=== PATIENT | female | born 1975 | race Caucasian/White ===

== ENCOUNTER 2019-04-17 17:17 | Emergency (ER) | payer OTHER ==
[~2019-04-17] VITALS: Ht 172.7 cm; Wt 59.5 kg
[2019-04-17 17:22] VITALS: BP 120/59; TEMP 99.3
[2019-04-17 19:07] VITALS: PULSE 91
== END 2019-04-17 19:08 | disposition home or self-care (01) ==
LOC: COL.ER 17:17
DX: J06.9 Acute upper respiratory infection, unspecified (principal); F17.210 Nicotine dependence, cigarettes, uncomplicated; Z98.890 Other specified postprocedural states; Z88.5 Allergy status to narcotic agent

== ENCOUNTER 2020-03-24 22:24 | Emergency (ER) | payer OTHER ==
[~2020-03-24] VITALS: Ht 172.7 cm; Wt 61.4 kg
[2020-03-24 22:40] VITALS: TEMP 99.4
[2020-03-24 23:16] LABS: BASO % 0.2 % (0.0-2.0); GRAN # 4.6 (1.4-6.5); GRAN % 75.3 % (42.2-75.2); LYMPH % 16.4 % (20.0-51.0); MEAN CELL VOLUME 73 fl (80.0-100.0); MEAN CORPUSCULAR HGB CONC 32 g/dl (33.0-37.0); MEAN PLATELET VOLUME 10.1 fl (7.4-10.4); MONO # 0.5 (0.1-0.6); MONO % 7.8 % (1.7-9.3); PLATELET COUNT 270 K/mm3 (130-400); RED BLOOD COUNT 4.07 M/mm3 (4.10-5.30); REDCELL DISTRIBUTION WIDTH-CV 16.4 % (11.5-14.5)
[2020-03-24 23:19] LABS: HEMATOCRIT 29.7 % (37.0-47.0); HEMOGLOBIN 9.4 g/dl (12.5-16.0); MEAN CORPUSCULAR HEMOGLOBIN 23 pg (27.0-31.0)
[2020-03-24 23:28] LABS: ALBUMIN 4.1 gm/dL (3.5-5.0); BILIRUBIN,TOTAL 0.5 mg/dL (0.0-1.0); CALCIUM 8.3 mg/dL (8.4-10.2); CREATININE, serum 0.66 (0.52-1.25); POTASSIUM 3.6 mmol/L (3.4-5.0); TOTAL PROTEIN 7.5 gm/dL (6.4-8.2)
[2020-03-25 00:07] LABS: COLLECTION METHOD CLEAN CATCH
[2020-03-25 00:12] LABS: PH 6 (5-8); SQUAMOUS EPITHELIAL 0-2 /hpf; URINE APPEARANCE Clear; URINE BACTERIA None Seen /hpf; URINE BILIRUBIN Negative (NEGATIVE); URINE BLOOD Negative (NEGATIVE); URINE COLOR Yellow; URINE GLUCOSE Negative (NEGATIVE); URINE KETONE Negative (NEGATIVE); URINE LEUKOCYTE ESTERASE Trace (NEGATIVE); URINE NITRATE Negative (NEGATIVE); URINE PROTEIN(semi-quant) Negative (NEGATIVE); URINE RBC 0-2 /hpf; URINE UROBILINOGEN Negative (NEGATIVE)
[2020-03-25 00:53] VITALS: BP 114/70; PULSE 68
== END 2020-03-25 00:53 | disposition home or self-care (01) ==
LOC: COL.ER 22:24
PROVIDERS: Physician Assistant
DX: B34.9 Viral infection, unspecified (principal); D64.9 Anemia, unspecified; F17.210 Nicotine dependence, cigarettes, uncomplicated; Z20.828 Contact with and (suspected) exposure to other viral communicable diseases
CPT/HCPCS: J7030

== ENCOUNTER 2020-03-25 16:15 | Inpatient (IN) | payer OTHER ==
[~2020-03-25] VITALS: Ht 172.7 cm; Wt 64.0 kg
[2020-03-25 17:23] LABS: BASO % 0.4 % (0.0-2.0); EOS % 0.4 % (0-4.0); GRAN # 4.1 (1.4-6.5); LYMPH # 1.1 (1.2-3.4); LYMPH % 19.2 % (20.0-51.0); MEAN CELL VOLUME 74 fl (80.0-100.0); MEAN CORPUSCULAR HGB CONC 32 g/dl (33.0-37.0); MONO # 0.4 (0.1-0.6); MONO % 6.6 % (1.7-9.3); PLATELET COUNT 232 K/mm3 (130-400); RED BLOOD COUNT 3.78 M/mm3 (4.10-5.30); REDCELL DISTRIBUTION WIDTH-CV 16.5 % (11.5-14.5)
[2020-03-25 17:37] LABS: ALBUMIN 3.6 gm/dL (3.5-5.0); BILIRUBIN,TOTAL 0.6 mg/dL (0.0-1.0); C-REACTIVE PROTEIN 5.5 mg/dL (0.0-0.9); CALCIUM 8.1 mg/dL (8.4-10.2); CREATININE, serum 0.52 (0.52-1.25); POTASSIUM 3.3 mmol/L (3.4-5.0)
[2020-03-25 17:47] LABS: HEMOGLOBIN 8.9 g/dl (12.5-16.0); MEAN CORPUSCULAR HEMOGLOBIN 24 pg (27.0-31.0)
[2020-03-25 18:20] LABS: COLLECTION METHOD CLEAN CATCH
[2020-03-25 18:26] LABS: ERYTHROCYTE SEDIMENTATION RATE 25 mm/hr (0-20)
[2020-03-25 18:47] LABS: MUCOUS Present /lpf; PH 5 (5-8); SQUAMOUS EPITHELIAL 20-50 /hpf; URINE APPEARANCE Cloudy; URINE BACTERIA None Seen /hpf; URINE BILIRUBIN Negative (NEGATIVE); URINE BLOOD 1+ (NEGATIVE); URINE COLOR Yellow; URINE GLUCOSE Negative (NEGATIVE); URINE KETONE Trace (NEGATIVE); URINE LEUKOCYTE ESTERASE 2+ (NEGATIVE); URINE NITRATE Negative (NEGATIVE); URINE PROTEIN(semi-quant) 2+ (NEGATIVE)
[2020-03-25 19:36] LABS: GLUCOSE,CSF 55 mg/dL (40-70); TOTAL PROTEIN,CSF 123 mg/dL (15-45)
[2020-03-25 20:26] LABS: CSF APPEARANCE CLEAR; CSF COLOR COLORLESS; CSF RBC 5 /mm3 (0-0)
[2020-03-25 20:27] LABS: CSF APPEARANCE CLEAR; CSF COLOR COLORLESS; CSF RBC 1740 /mm3 (0-0)
[2020-03-25 20:49] LABS: CSF MONONUCLEAR 72 % (70-100); CSF POLYMORPHONUCLEAR 28 % (0-6)
[2020-03-25 20:52] LABS: CSF MONONUCLEAR 55 % (70-100); CSF POLYMORPHONUCLEAR 45 % (0-6)
--- NOTE | 2020-03-25 22:20 | NUR ---
Received report from Ed RN Hazel.
--- NOTE | 2020-03-25 22:51 | NUR ---
Pt arrived to medical unit room 317 via cart.
--- NOTE | 2020-03-25 23:00 | NUR ---
Assessment complete. States no RX home meds. Allergy to codeine.Pt appears to be in pain, whimpering, tearful, shivering. States generalized pain and wanting to sleep. T100.3. Able to answer questions and follow commands. A/O x4. Asissted pt to BSC. No skin issues observed. x2 IV site to LAC and LFA, intact, with IVF infusing. Tele monitor placed on pt. Pt changed into gown. Placed on droplet precautions. Meds administered as ordered, prn tylenol administered. SCD in place to BLE. Made pt comfortable in bed. Call light within reach. Will monitor.
[2020-03-25 23:04] VITALS: BP 120/69; PULSE 96; TEMP 100.3
[2020-03-25 23:29] LABS: IRON,SERUM 16 ug/dL (35-150)
[2020-03-25 23:30] LABS: MAGNESIUM 2.2 mg/dL (1.6-2.3)
[2020-03-25 23:38] LABS: TOTAL IRON BINDING CAPACITY 384 ug/dL (265-497)
[2020-03-26] VITALS (7 sets, daily range): BP systolic 102–124; BP diastolic 45–65; PULSE 74–95; TEMP 99.5–103
--- NOTE | 2020-03-26 00:10 | NUR ---
Started IVPB Potassium. Pt unable to tolerate IVPB. Notified J[employer]NEY[employer] Josette and received orderd to dc IV potassium and to administer po effer-k.
--- NOTE | 2020-03-26 06:22 | NUR ---
Pt woke up tearful, stating extreme pain to head and back of neck. PRN tylenol administerd for temp of 103. Notified MAINTENANCE [employer] Josette, randy tramadol ordered and administered. Ice pack provided and placed behind neck. Made pt comfortable in bed. Pt sleeping approximately 20 minutes after administration of tramadol. Will monitor. Call light within reach.
--- NOTE | 2020-03-26 07:07 | NUR ---
Report given to CORNELIO Meehan.
[2020-03-26 07:16] LABS: CALCIUM 7.1 mg/dL (8.4-10.2); CREATININE, serum 0.51 (0.52-1.25); POTASSIUM 3.8 mmol/L (3.4-5.0)
--- NOTE | 2020-03-26 07:21 | NUR ---
SHIFT REPORT RECEIVED AND PATIENT ROUNDED ON SHORLTY AFTER. REMAINS ON DROPLET PRECAUTIONS. RESTING IN BED WITH EYES CLOSED. ACYCLOVIR INFUSION COMPLETE. NO S/S DISTRESS. CALL LIGHT WITHIN REACH.
--- NOTE | 2020-03-26 09:42 | NUR ---
MONIRNG MEDS GIVEN. PT AOX4. AT BEDSIDE. REPORTS PAIN TO HEAD AND NECK 01/08 SHARP. ICE PACK ON NECK. TRAMADOL NOT DUE UNTIL 927. REPORTS MODERATE NAUSEA. STRONG COUGH NOTED WITH THIN WHITE PHLEGM. BASES DIMINISHED. POOR APPETITE. VOIDED TO BSC WITH 1 ASSIST. TEMP THIS AM AND TYLENOL GIVEN. RASH NOTED THROUGHOUT ALL LIMBS AND CHEST, SMALL PINK RAISED BUMPS. GENERALIZED WEAKNESS. PT REPORTS NOT FEELING WELL. REPORTS PHOTOSENSITIVITY. DOC MADE AWARE OF LL ABOVE COMPLAINTS AND CURRENTLY IN SEEING PT. GI PANEL ORDERED. PT NOT SURE WHEN LAST BM WAS. SHE DOES HOWEVER REPORT HER MENSES IN FINAL DAYS THUS BROWN VAGIAL DISCHARGE.
--- NOTE | 2020-03-26 10:01 | NUR ---
MARGARET contacted the patient's room phone to complete intake. The patient is on isolation precautions and a COVID test has been ordered. The patient's , William (ph#[phone]), answered the phone. The patient lives in [place] with her and children. William reports that the patient is independent with ADLs and does not have any DME. The patient's PCP is Dr. Donta Greene and she receives her medications at [facility]. William reports that the patient does have a DPOA-HC completed and that he is her DPOA-HC. William states that the plan is for the patient to return back home with him and their children upon discharge. SW to continue to follow as needed.
--- NOTE | 2020-03-26 11:03 | NUR ---
COVID SWAB COILLECTED. PT TOLERATED FAIRLY. ALSO ASISSTED ONHTO BEDSIDE COMMODE. REPORTS PAIN REDUCED TO 4/10. REMAINS AT BEDSIDE
--- NOTE | 2020-03-26 16:29 | NUR ---
pt with fever for 1600 vitals. prn tylenol given. reports pain now 3/10 much improved from morning. Dr Miller called and he spoke to pt and her over phone. plans to start on doxycycline. pt with 2 IV's on left FA but tender with flushes. no infiltration noted. PA consulted for possible PICC placement and states will F/U pending blood cultures tomorrow. pt now resting in bed with eyes closed. covered with sheet only. reports some nausea and zofran given. remains on droplet precautions. sleepy but fully oriented and easily awoken.
--- NOTE | 2020-03-26 20:40 | NUR ---
Patient assessed at this time. Alert and oriented x 4, and able to make needs known. Assisted to bedside commode. One [id number]. Urine clear and yellow, and assisted back to bed. Reports level 5 pain to head/neck/temples. Given PRN Morphine as requested. Peripheral IV to left AC with fluids running per ordes. INT to left wrist flushed. Site without redness, warmth, swelling, and pain. Denies SOB and dyspnea. LS CTA. Respirations even and unlabored. HRR. Tele: normal sinus. Capillary refill less than 3 seconds. Non-tenting skin turgor. BSAx4. No edema. Bandaid to lower back CDI. Voices no questions, needs, or concerns at this time. Resting in bed with call light within reach.
--- NOTE | 2020-03-27 | NUR ---
Patient's temp 101.2. Given PRN APAP at this time.
--- NOTE | 2020-03-27 03:00 | NUR ---
Patient complained of level 6 pain. Given PRN Morphine for pain as requested.
[2020-03-27 04:02] VITALS: BP 99/61; PULSE 72; TEMP 98.6
--- NOTE | 2020-03-27 05:58 | NUR ---
Patient has received PRN Benadryl once this shift for itching-voiced that it was effective. Patient had a fever of 101.2 around midnight, and was given PRN APAP, which was effective. Has received PRN Morphine as requested for pain, which patient states is effective. Voices no questions, needs, or concerns at this time. Resting in bed with call light within reach.
[2020-03-27 06:49] LABS: BASO % 0.2 % (0.0-2.0); GRAN # 3.6 (1.4-6.5); GRAN % 62.4 % (42.2-75.2); HEMOGLOBIN 7.4 g/dl (12.5-16.0); LYMPH # 1.7 (1.2-3.4); LYMPH % 29.9 % (20.0-51.0); MEAN CELL VOLUME 76 fl (80.0-100.0); MEAN CORPUSCULAR HEMOGLOBIN 23 pg (27.0-31.0); MEAN CORPUSCULAR HGB CONC 31 g/dl (33.0-37.0); MEAN PLATELET VOLUME 10.2 fl (7.4-10.4); MONO # 0.4 (0.1-0.6); MONO % 7.3 % (1.7-9.3); PLATELET COUNT 193 K/mm3 (130-400); RED BLOOD COUNT 3.18 M/mm3 (4.10-5.30); REDCELL DISTRIBUTION WIDTH-CV 16.8 % (11.5-14.5)
[2020-03-27 06:54] LABS: CALCIUM 7.4 mg/dL (8.4-10.2); CREATININE, serum 0.5 (0.52-1.25)
[2020-03-27 07:04] LABS: POTASSIUM 3.8 mmol/L (3.4-5.0)
[2020-03-27 08:37] VITALS: BP 129/64; PULSE 97; TEMP 101.4
--- NOTE | 2020-03-27 08:52 | NUR ---
Pt assessment complete. Pt is laying in bed upon entry, she is A/O x4. Her breathing is even and unlabored on RA. Pt denies cough or SOB. Pt reports pain to neck and head 6/10, frequently groaning in pain. Scheduled Ultram administered, will give Tylenol for elevated temperature. Denies N/V. Assisted to restroom with assistance of one. SCD's in place.
[2020-03-27 12:59] VITALS: BP 115/72; PULSE 74; TEMP 98.1
[2020-03-27 16:17] VITALS: BP 134/73; PULSE 94; TEMP 100.1
--- NOTE | 2020-03-27 17:56 | NUR ---
Pt continued to have headache and pain to neck. Relieved with PRN pain medications. Temperature fluctuated, responds to Tylenol. Pt reports having watery diarrhea this afternoon. Pt no longer on isolation, POC discussed with patient and her . No further needs at this time. Call light within reach.
[2020-03-27 19:10] VITALS: BP 116/66; PULSE 82; TEMP 99.5
--- NOTE | 2020-03-27 19:25 | NUR ---
Patient assessed at this time. Alert and oriented x 4, and able to make needs known. Reports level 4 pain to head/neck. Given scheduled Ultram. PICC to [facility], dressing to area is CDI. Site without redness, warmth, swelling, and pain. Denies SOB and dsypnea. LS CTA. Respirations even and unlabored. HRR. Telemetry: NS. Capillary refill less than 3 seconds. Non-tenting skin turgor. BSAx4. Abdomen soft and non-tender. Did complain of nausea and given PRN Zofran as requested. Rash to BUE and BLE, complaining of itching. Given PRN Benadryl as requested. SCDs to BLE on. Decreased appetite, encouraged fluids. Voices no questions, needs, or concerns at this time. Resting in bed with call light within reach.
[2020-03-27 23:50] VITALS: BP 116/76; PULSE 86; TEMP 98.3
--- NOTE | 2020-03-28 00:22 | NUR ---
Patient complained of pain to neck/head/temples. Given PRN Morphine for pain as requested.
[2020-03-28 03:16] LABS: HSV 2 DNA PCR QUAL TNP:QNS (())
[2020-03-28 04:00] VITALS: BP 135/67; PULSE 99; TEMP 102.7
--- NOTE | 2020-03-28 05:58 | NUR ---
Patient had a fever of 102.7. Given PRN APAP around 0450 for this. Patient has received PRN Morphine as requested for pain this shift. Voices no further questions, needs, or concerns at this time. Resting in bed with call light within reach.
[2020-03-28 06:54] LABS: BASO % 0.3 % (0.0-2.0); GRAN # 5.2 (1.4-6.5); GRAN % 71.9 % (42.2-75.2); LYMPH # 1.4 (1.2-3.4); LYMPH % 19.7 % (20.0-51.0); MEAN CELL VOLUME 74 fl (80.0-100.0); MEAN CORPUSCULAR HGB CONC 32 g/dl (33.0-37.0); MEAN PLATELET VOLUME 10.7 fl (7.4-10.4); MONO # 0.6 (0.1-0.6); MONO % 7.8 % (1.7-9.3); PLATELET COUNT 226 K/mm3 (130-400); RED BLOOD COUNT 3.11 M/mm3 (4.10-5.30); REDCELL DISTRIBUTION WIDTH-CV 16.5 % (11.5-14.5)
[2020-03-28 07:04] LABS: HEMATOCRIT 22.9 % (37.0-47.0); HEMOGLOBIN 7.3 g/dl (12.5-16.0); MEAN CORPUSCULAR HEMOGLOBIN 23 pg (27.0-31.0)
[2020-03-28 07:07] LABS: ALBUMIN 3.1 gm/dL (3.5-5.0); BILIRUBIN,TOTAL 0.4 mg/dL (0.0-1.0); CALCIUM 7.5 mg/dL (8.4-10.2); CREATININE, serum 0.47 (0.52-1.25); POTASSIUM 3.8 mmol/L (3.4-5.0)
[2020-03-28 09:00] VITALS: BP 121/71; PULSE 73; TEMP 98.9
--- NOTE | 2020-03-28 09:02 | NUR ---
Assessment complete. Patient sitting up in bed. at the bedside at this time. She reports pain at a six in her head and neck despite recieving morphine less than 2 hours ago, scheduled and prn pain medications given per MAR. IVF running at this time. Assessment otherwise unremarkable. Will conintue to monitor. Call light is in reach.
[2020-03-28 11:24] VITALS: BP 144/86; PULSE 78; TEMP 98.4
[2020-03-28 15:37] VITALS: BP 136/82; PULSE 78; TEMP 98.8
--- NOTE | 2020-03-28 16:48 | NUR ---
Patient has had an unevetful day. Moving rooms for isolation precautions was very uncomfortable for the patients head and neck pain but once fully relocated she became more comfortable. PRN pain medications given as requested through the day. PICC site remains CD&I. Her and her both understand her plan of care. IVF continue to run. Patient is aware to call for help although her strength has improved today. Will continue to monitor. Call light is in reach.
[2020-03-28 19:44] VITALS: BP 118/72; PULSE 76; TEMP 98.4
--- NOTE | 2020-03-28 20:00 | NUR ---
Patient assessed at this time. Alert and oriented x 4, and able to make needs known. Complained of level 6 pain to head/neck/back. Given scheduled Ultram as well as PRN Morphine. Double lumen PICC to RUE. Dressing CDI. Site without redness, warmth, swelling, and pain. Denies SOB and dyspnea. LS CTA. Respirations even and unlabored. HRR. Telemetry in place: normal sinus. Capillary refill less than 3 seconds. Non-tenting skin turgor. BSAx4. Abdomen soft and non-tender. No edema. Fading rash to BUE and BLE. Voices no questions, needs, or concerns at this time. Resting in bed with call light within reach.
[2020-03-28 23:42] VITALS: BP 122/78; PULSE 80; TEMP 100.3
[2020-03-29 03:46] VITALS: BP 120/76; PULSE 79; TEMP 98.5
--- NOTE | 2020-03-29 05:36 | NUR ---
Patient has been calling for pain medication as needed-see MAR. Requests PRN Morphine, as she says it is more effective. Continues on aniviral and antibiotics per MD orders. Has been calling for assistance with getting up to bathroom due to weakness. Resting in bed with eyes closed at this time. Call light is within reach.
[2020-03-29 06:56] LABS: MEAN CELL VOLUME 74 fl (80.0-100.0); MEAN CORPUSCULAR HGB CONC 32 g/dl (33.0-37.0); MEAN PLATELET VOLUME 10.9 fl (7.4-10.4); PLATELET COUNT 217 K/mm3 (130-400); REDCELL DISTRIBUTION WIDTH-CV 16.3 % (11.5-14.5)
[2020-03-29 07:10] LABS: CALCIUM 7.7 mg/dL (8.4-10.2); CREATININE, serum 0.45 (0.52-1.25); HEMATOCRIT 22.2 % (37.0-47.0); MEAN CORPUSCULAR HEMOGLOBIN 23 pg (27.0-31.0); POTASSIUM 3.7 mmol/L (3.4-5.0)
[2020-03-29 08:00] VITALS: BP 138/68; PULSE 81; TEMP 98.7
[2020-03-29 12:48] VITALS: BP 118/62; PULSE 78; TEMP 99
--- NOTE | 2020-03-29 13:07 | NUR ---
MARGARET attempted to contact the patient's room phone to follow up. She did not answer. MARGARET then contacted the patient's , William, to follow up. William is anxious to find out the results of the patient's repeat COVID test, so that he can visit the patient. MARGARET notified the patient's RN. William had no other questions or concerns for SW at this time. SW to continue to follow as needed.
[2020-03-29 16:48] LABS: HEMATOCRIT 23.4 % (37.0-47.0); HEMOGLOBIN 7.4 g/dl (12.5-16.0)
--- NOTE | 2020-03-29 21:20 | NUR ---
Resting in bed. Assessment complete. Lungs clear. Heart sounds normal. Bowels active x4. Pulses present throughout. No edema noted. PICC to right upper flushed without complications. Reports 4/10 pain back pain. Provided with scheduled tramadol. Up to bedside commode and returned to bed. Denies other needs. Call light in reach. Will monitor.
[2020-03-29 23:05] VITALS: BP 119/62; PULSE 84; TEMP 101.6
--- NOTE | 2020-03-29 23:40 | NUR ---
Patient temp elevated. Given PRN tylenol. Blankets removed. Room temp decreased. Reports 4/10 pain at this time. Will monitor.
[2020-03-30] VITALS (7 sets, daily range): BP systolic 106–137; BP diastolic 67–80; PULSE 64–80; TEMP 97.8–99.2
--- NOTE | 2020-03-30 01:54 | NUR ---
Resting in bed asleep. Call light in reach.
--- NOTE | 2020-03-30 04:05 | NUR ---
Up to restroom and returned to bed. Denies needs. call light in reach. Reports pain much better.
--- NOTE | 2020-03-30 06:02 | NUR ---
Patient had x1 temp. Given PRN tylenol. Otherwise uneventful night. Resting in bed this AM. Call light in reach.
--- NOTE | 2020-03-30 06:10 | NUR ---
Rating headache 5/10. Requested pain meds. Provided with PRN tramadol at this time.
[2020-03-30 06:57] LABS: MEAN CELL VOLUME 74 fl (80.0-100.0); MEAN CORPUSCULAR HGB CONC 32 g/dl (33.0-37.0); MEAN PLATELET VOLUME 10.8 fl (7.4-10.4); PLATELET COUNT 238 K/mm3 (130-400); RED BLOOD COUNT 3.02 M/mm3 (4.10-5.30); REDCELL DISTRIBUTION WIDTH-CV 16.5 % (11.5-14.5)
[2020-03-30 07:00] LABS: HEMATOCRIT 22.3 % (37.0-47.0); HEMOGLOBIN 7.1 g/dl (12.5-16.0); MEAN CORPUSCULAR HEMOGLOBIN 24 pg (27.0-31.0)
[2020-03-30 07:13] LABS: CALCIUM 7.9 mg/dL (8.4-10.2); CREATININE, serum 0.35 (0.52-1.25); POTASSIUM 3.5 mmol/L (3.4-5.0)
--- NOTE | 2020-03-30 07:39 | NUR ---
Report given to CORNELIO Yarbrough
[2020-03-30 07:46] LABS: BAND 3 % (0-10); LYMPHOCYTE 23 % (20.0-51.0); NEUTROPHILS 64 % (42.0-75.2); NUCLEATED RED BLOOD CELL 1 (0-6); PLATELET ESTIMATE NORMAL (NORMAL)
[2020-03-30 07:47] LABS: ANISOCYTOSIS 2+; HYPOCHROMIA 1+; MICROCYTOSIS 1+; OVALOCYTES 1+; SCHISTOCYTES 1+
--- NOTE | 2020-03-30 08:34 | NUR ---
Pt awake and alert upon entry, spouse in room with Ot, has C/O pain at this time, medications given for relief. Shift assessments complete, left Pt call light in reach, bed in lowest position.
--- NOTE | 2020-03-30 19:02 | NUR ---
Pt resting in the room, has had C/O pain during the day, no other issues noted. Pt was able to ambulate to the restroom with minimal assistance of one. Pt not eating well. VS have remained stable.
--- NOTE | 2020-03-30 20:30 | NUR ---
Initial shift assessment done- states headache is much better, still has no appetite- not eating much-only bites, Ensure was given and pt is taking some sips at this time. Tele on.
[2020-03-31 03:39] VITALS: BP 130/71; PULSE 86; TEMP 99.8
--- NOTE | 2020-03-31 05:50 | NUR ---
pt states has a headache 6/10- moaning, Toradol given at this time-- up to bathroom with assist,weak-voiding good amounts.
[2020-03-31 06:41] LABS: BASO % 0.2 % (0.0-2.0); EOS # 0.1 (0.0-0.7); EOS % 0.7 % (0-4.0); GRAN # 6.5 (1.4-6.5); GRAN % 74.3 % (42.2-75.2); LYMPH # 1.4 (1.2-3.4); LYMPH % 15.5 % (20.0-51.0); MEAN CELL VOLUME 73 fl (80.0-100.0); MEAN CORPUSCULAR HGB CONC 32 g/dl (33.0-37.0); MEAN PLATELET VOLUME 10.7 fl (7.4-10.4); MONO # 0.8 (0.1-0.6); MONO % 8.6 % (1.7-9.3); PLATELET COUNT 315 K/mm3 (130-400); RED BLOOD COUNT 3.42 M/mm3 (4.10-5.30); REDCELL DISTRIBUTION WIDTH-CV 16.5 % (11.5-14.5)
[2020-03-31 06:45] LABS: CALCIUM 8.4 mg/dL (8.4-10.2); CREATININE, serum 0.45 (0.52-1.25); HEMOGLOBIN 7.9 g/dl (12.5-16.0); MEAN CORPUSCULAR HEMOGLOBIN 23 pg (27.0-31.0); POTASSIUM 3.4 mmol/L (3.4-5.0)
[2020-03-31 08:12] VITALS: BP 121/72; PULSE 59; TEMP 97.8
--- NOTE | 2020-03-31 08:22 | NUR ---
Pt assessment complete. Pt just finished with shower and is in bed at this time. She is A/O x3. States she feels much better. Headache 08/08. No N/V. No dizziness. Weakness but ambulates with standby assist. POC discussed with patient who verbalizes understanding. Encouraged to eat breakfast if tolerating. Will continue to monitor.
[2020-03-31 11:23] VITALS: BP 119/77; PULSE 65; TEMP 98
[2020-03-31 16:36] VITALS: BP 128/77; PULSE 76; TEMP 99
[2020-03-31 19:10] VITALS: BP 126/81; PULSE 87; TEMP 98.6
--- NOTE | 2020-03-31 19:36 | NUR ---
Pt had a better day, her mood seemed better and patient more talkative. Only required one dose of PRN Tylenol for DELVALLE. Pt did shower with assistance of staff. Ate and drank more than previous days. No needs at this time. Call light within reach.
--- NOTE | 2020-03-31 21:00 | NUR ---
Initial shift assessment done- states headache is 08/08- will get the scheduled Ultram at this time--states overall feeling somewhat stronger--did take a shower today and states that really made her feel better! Afebrile, no diarrhea. PICC to [facility]
[2020-03-31 23:52] VITALS: BP 125/75; PULSE 68; TEMP 98.4
[2020-04-01 04:43] VITALS: BP 133/83; PULSE 85; TEMP 98.8
--- NOTE | 2020-04-01 06:00 | NUR ---
Slept well last night- no requests for pain meds since the start of the shift-VSS
--- NOTE | 2020-04-01 06:45 | NUR ---
PT RESTING IN ROOM AT THIS TIME. HAS C/O SOME MILD PAIN AND REQUESTS TYLENOL. ALL OTHER VSS, AND ASSESSEMENT COMPLETED. NO FURTHER CONCERNS. CALL LIGHT WITHIN REACH, BED ALARM ON.
[2020-04-01 08:07] VITALS: BP 128/75; PULSE 90; TEMP 97.5
--- NOTE | 2020-04-01 08:58 | NUR ---
Pt is not complaining of any pain. She has been afebrile, no chills, diarrhea or any nausea/vomiting. Pt assessment completed. VSS. No further concern. Provider states she will be discharging home today.
[2020-04-01] MEDS ORDERED: FERROUSAL325 MG PO (09:38)
[2020-04-01 11:51] VITALS: BP 119/77; PULSE 78; TEMP 98.2
[2020-04-01] MEDS ORDERED: ZOVIRAX INJ V1000 MG IV ×3 (12:19→14:36)
--- NOTE | 2020-04-01 14:32 | NUR ---
SW was informed that patient would be DCing today with IV antibiotics. SW contacted [facility] of [facility] to assist with services [phone]. Required documentation faxed to this facilty [phone]. Staff member Edmond stated that medications could be delivered by 04/02/20 at noon. Physicians trade sales assistant Chanel informed and provided information, she provided that patient can be DC'd tomorrow to ensure patient recieves required medications at specific times. Patient updated on information and was okay with being discharged tomorrow. Patient provided that she is okay with recieving home health services to assist with this medication from [facility]. [facility] home health staff member Jj [phone] informed of patient information, and proper documentation faxed for review to [phone] . Jj stated that staff of [facility] home health will plan to assist with services at 4pm at patients home on 04/02/2020 [facility] pharmacy staff called SW and confirmed that medication will be delivered by noon on 04/02/20. Patient updated with information and was okay with all listed information above. SW will continue to follow.
[2020-04-01 16:07] VITALS: BP 128/81; PULSE 76; TEMP 98.2
[2020-04-01 20:08] VITALS: BP 142/81; PULSE 67; TEMP 99.1
--- NOTE | 2020-04-01 21:00 | NUR ---
Up to restroom and returned to bed. Assessment complete. Lungs clear. Heart sounds normal. Bowels active x4. Pulses present throughout. No edema noted. PICC to right upper flushed without complications. Reports 5/10 pain. Given schedule tramadol. Denies other needs at this time. Call light in reach.
[2020-04-02] VITALS: BP 116/73; PULSE 79; TEMP 98.5
--- NOTE | 2020-04-02 00:28 | NUR ---
Resting in bed. Denies needs. Call light in reach.
--- NOTE | 2020-04-02 02:22 | NUR ---
Resting in bed. Denies needs. Call light in reach.
[2020-04-02 04:00] VITALS: BP 120/88; PULSE 75; TEMP 98.2
--- NOTE | 2020-04-02 06:06 | NUR ---
Patient had uneventful night. Required scheduled tramadol for pain control. Resting in bed this AM. Call light in reach.
--- NOTE | 2020-04-02 07:08 | NUR ---
Report given to Arianna GRIMES
[2020-04-02 07:26] VITALS: BP 113/74; PULSE 83; TEMP 97.8
--- NOTE | 2020-04-02 09:49 | NUR ---
Assessment complete. Patient sitting up in bed eating breakfast with her . No immediate complaints of pain or discomfort, scheduled pain medications administered as ordered. Caps were changed on pts PICC line. Patient is aware of her POC. No other needs were expressed at this time. Will continue to monitor. Call light is in reach.
--- NOTE | 2020-04-02 09:54 | NUR ---
MARGARET contacted Reilly at [facility] in [place] to confirm delivery of antibiotics. Reilly states that the patient's IV antibiotics are scheduled to be delivered around noon today. MARGARET met with the patient and her to update. The patient and her verbalized understanding. The patient states that she is ready to get back home. MARGARET updated the patient's RN. The patient is to discharge back home with her family today, 04/02, with home health services for alf/PT/OT through [facility]. MARGARET notified Jj at [facility] and faxed him d/c orders. Jj states that they will be out to the patient's home aroud 1600 today. MARGARET informed the patient and her of this. No additional needs at this time.
--- NOTE | 2020-04-02 10:10 | NUR ---
PICC intact right upper arm. PICC dressing change done with sterile technique with insertion site cleansed with ChloraPrep 1, chlorhexidine impregnated disc applied, skin prep, StatLock, and Tegaderm applied. No signs or symptoms of IV complications noted. No concerns voiced. Arm wrapped with Vinayak to protect catheter. The plan is for the patient to be discharged today with IV medication administration at home.
--- NOTE | 2020-04-02 11:24 | NUR ---
Patient left the floor at this time. Discharge instructions and picc instructions were discussed. No further questions or concerns.
== END 2020-04-02 11:27 | disposition home health service (06) | DRG 75 ==
LOC: COL.ER 16:15 → MEDICAL 21:10
PROVIDERS: Emergency Medicine; Internal Medicine; Nurse Practitioner Family; Physician Assistant; Student in an Organized Health Care Education/Training Program; ADMIT Hospitalist
PROC: 009U3ZX Drainage of Spinal Canal, Percutaneous Approach, Diagnostic (ICD-10-PCS; 2020-03-25)
PROC: 02HV33Z Insertion of Infusion Device into Superior Vena Cava, Percutaneous Approach (ICD-10-PCS; principal; 2020-03-27)
DX: A87.0 Enteroviral meningitis (principal); R65.10 Systemic inflammatory response syndrome (SIRS) of non-infectious origin without acute organ dysfunction; E87.6 Hypokalemia; K52.9 Noninfective gastroenteritis and colitis, unspecified; F17.210 Nicotine dependence, cigarettes, uncomplicated; Z20.828 Contact with and (suspected) exposure to other viral communicable diseases; D50.9 Iron deficiency anemia, unspecified; M54.2 Cervicalgia; Z86.19 Personal history of other infectious and parasitic diseases
CPT/HCPCS: 99223-AI; 99232-AI; 99233-AI; 99239; C1751; J0133; J0696; J1200; J1650; J1885; J2060; J2270; J2405; J2543; J2550; J3370; J3480; J7030; J7050; Q9967

== ENCOUNTER 2020-04-12 12:35 | Outpatient (CLI) | payer OTHER ==
[~2020-04-12] VITALS: Ht 172.7 cm; Wt 58.1 kg
[~2020-04-12 12:35] MED LIST: FERROUSAL325 MG PO; ZOVIRAX INJ V1000 MG IV
[2020-04-12 12:52] VITALS: BP 120/81; PULSE 75; TEMP 97.7
== END 2020-04-12 14:01 | disposition home or self-care (01) ==
LOC: EUO 12:35
DX: A87.9 Viral meningitis, unspecified (principal)

== ENCOUNTER 2020-09-05 23:53 | Emergency (ER) | payer OTHER ==
[2020-09-06 02:55] VITALS: BP 92/59; PULSE 81; TEMP 98.2
[2020-09-06 05:17] LABS: COLLECTION METHOD CLEAN CATCH; HEMOGLOBIN 10.2 g/dl (12.5-16.0); MEAN CORPUSCULAR HEMOGLOBIN 27 pg (27.0-31.0); RED BLOOD COUNT 3.83 M/mm3 (4.10-5.30)
[2020-09-06 05:18] LABS: BASO % 0.1 % (0.0-2.0); EOS % 0.5 % (0-4.0); ERYTHROCYTE SEDIMENTATION RATE 23 mm/hr (0-20); GRAN % 66.9 % (42.2-75.2); HEMATOCRIT 31.8 % (37.0-47.0); LYMPH # 1.8 (1.2-3.4); LYMPH % 23.9 % (20.0-51.0); MEAN CELL VOLUME 83 fl (80.0-100.0); MEAN CORPUSCULAR HGB CONC 32 g/dl (33.0-37.0); MONO # 0.6 (0.1-0.6); MONO % 8.3 % (1.7-9.3); PLATELET COUNT 240 K/mm3 (130-400); REDCELL DISTRIBUTION WIDTH-CV 15.4 % (11.5-14.5)
[2020-09-06 05:19] LABS: PH 6 (5-8); URINE APPEARANCE Cloudy; URINE BILIRUBIN Negative (NEGATIVE); URINE COLOR Amber; URINE GLUCOSE Negative (NEGATIVE); URINE KETONE Negative (NEGATIVE); URINE PROTEIN(semi-quant) 2+ (NEGATIVE)
[2020-09-06 05:20] LABS: URINE BACTERIA None Seen /hpf; URINE BLOOD 3+ (NEGATIVE); URINE LEUKOCYTE ESTERASE 1+ (NEGATIVE); URINE NITRATE Negative (NEGATIVE); URINE RBC >50 /hpf; URINE WBC 20-50 /hpf
[2020-09-06 05:21] LABS: CREATININE, serum 0.88 (0.52-1.25)
[2020-09-06 05:22] LABS: ALBUMIN 3.9 gm/dL (3.5-5.0); BILIRUBIN,TOTAL 0.8 mg/dL (0.0-1.0); CALCIUM 8.4 mg/dL (8.4-10.2); TOTAL PROTEIN 7.8 gm/dL (6.4-8.2)
[2020-09-07] MEDS ORDERED: LEXAPRO 5MG5 MG PO (14:09)
== END 2020-09-06 02:55 | disposition home or self-care (01) ==
LOC: COL.ER 23:53
PROVIDERS: Emergency Medicine
DX: B34.9 Viral infection, unspecified (principal); Z20.822 Contact with and (suspected) exposure to COVID-19
CPT/HCPCS: J1885; J7030

== ENCOUNTER 2020-09-07 12:38 | Inpatient (IN) | payer OTHER ==
[~2020-09-07] VITALS: Ht 172.7 cm; Wt 63.6 kg
[2020-09-07 13:32] LABS: BASO % 0.1 % (0.0-2.0); EOS % 0.4 % (0-4.0); GRAN # 5.1 (1.4-6.5); GRAN % 71.6 % (42.2-75.2); LYMPH # 1.4 (1.2-3.4); LYMPH % 20.4 % (20.0-51.0); MEAN CELL VOLUME 82 fl (80.0-100.0); MEAN CORPUSCULAR HGB CONC 32 g/dl (33.0-37.0); MEAN PLATELET VOLUME 9.9 fl (7.4-10.4); MONO # 0.5 (0.1-0.6); MONO % 7.4 % (1.7-9.3); PLATELET COUNT 225 K/mm3 (130-400); RED BLOOD COUNT 3.56 M/mm3 (4.10-5.30); REDCELL DISTRIBUTION WIDTH-CV 14.9 % (11.5-14.5)
[2020-09-07 13:38] LABS: ALBUMIN 3.4 gm/dL (3.5-5.0); BILIRUBIN,TOTAL 0.9 mg/dL (0.0-1.0); CALCIUM 8.7 mg/dL (8.4-10.2); CREATININE, serum 0.51 (0.52-1.25); POTASSIUM 3.5 mmol/L (3.4-5.0); TOTAL PROTEIN 6.9 gm/dL (6.4-8.2)
[2020-09-07 13:45] LABS: HEMATOCRIT 29.3 % (37.0-47.0); HEMOGLOBIN 9.3 g/dl (12.5-16.0); MEAN CORPUSCULAR HEMOGLOBIN 26 pg (27.0-31.0)
[2020-09-07] MEDS ORDERED: LEXAPRO 5MG5 MG PO (14:09)
[2020-09-07 15:35] LABS: CSF MONONUCLEAR 84 % (70-100); CSF POLYMORPHONUCLEAR 16 % (0-6); CSF RBC 0 /mm3 (0-0); GLUCOSE,CSF 52 mg/dL (40-70); TOTAL PROTEIN,CSF 79 mg/dL (15-45)
[2020-09-07 16:16] LABS: CSF APPEARANCE CLEAR; CSF COLOR COLORLESS
[2020-09-07 19:19] VITALS: BP 138/74; PULSE 88; TEMP 99.5
--- NOTE | 2020-09-07 23:46 | NUR ---
1950 - PATIENT C/O P[AIN AT 810 HEADACHE - 25MCG FENTANYL GIVEN WITH MINIMAL RESULTS - REPEATED AT 2149 WITH PAIN NOT FALLING BELOW 7/10. HOSPITALIST AUTOMOTIVE ELECTRICIAN CONTACTED AND ORDERS RECEIVED. 0 - PATIENT TEMP AT 102.8, TYLENOL GIVEN 2310 - TEMP 102.7 - ICED CLOTHS APPLIED TO HEAD, NECK, HANDS AND ANKLES 2335 - TEMP 99.1 WITH PAIN RATED AT 4/10
[2020-09-08] VITALS (11 sets, daily range): BP systolic 89–120; BP diastolic 46–77; PULSE 64–94; TEMP 98.1–101.6
[2020-09-08] MEDS ORDERED: VALTREX 50500 MG/TAB PO (00:01)
--- NOTE | 2020-09-08 05:16 | NUR ---
Patient received PRN pain medication as requested this shift. Has been afebrile since receiving PRN Motrin. Continues on IV fluids and IV antibiotics per orders. Voices no questions, needs, or concerns at this time. Resting in bed with call light within reach.
[2020-09-08 06:12] LABS: BASO % 0.4 % (0.0-2.0); EOS # 0.1 (0.0-0.7); EOS % 0.9 % (0-4.0); GRAN # 4.1 (1.4-6.5); LYMPH % 29.7 % (20.0-51.0); MEAN CELL VOLUME 82 fl (80.0-100.0); MEAN CORPUSCULAR HGB CONC 32 g/dl (33.0-37.0); MONO # 0.5 (0.1-0.6); MONO % 7.9 % (1.7-9.3); PLATELET COUNT 223 K/mm3 (130-400); RED BLOOD COUNT 3.29 M/mm3 (4.10-5.30); REDCELL DISTRIBUTION WIDTH-CV 15.1 % (11.5-14.5)
[2020-09-08 06:22] LABS: CREATININE, serum 0.5 (0.52-1.25); POTASSIUM 3.5 mmol/L (3.4-5.0)
[2020-09-08 06:25] LABS: HEMOGLOBIN 8.5 g/dl (12.5-16.0); MEAN CORPUSCULAR HEMOGLOBIN 26 pg (27.0-31.0)
[2020-09-08 08:37] LABS: COLLECTION METHOD CLEAN CATCH
[2020-09-08 08:49] LABS: MUCOUS Present /lpf; PH 6 (5-8); SQUAMOUS EPITHELIAL None Seen /hpf; URINE APPEARANCE Clear; URINE BACTERIA None Seen /hpf; URINE BILIRUBIN Negative (NEGATIVE); URINE BLOOD Negative (NEGATIVE); URINE COLOR Yellow; URINE GLUCOSE Negative (NEGATIVE); URINE KETONE Negative (NEGATIVE); URINE LEUKOCYTE ESTERASE Negative (NEGATIVE); URINE NITRATE Negative (NEGATIVE); URINE PROTEIN(semi-quant) Negative (NEGATIVE); URINE RBC 0-2 /hpf; URINE UROBILINOGEN Negative (NEGATIVE); URINE WBC 0-2 /hpf
--- NOTE | 2020-09-08 09:00 | NUR ---
Patient resting in bed, easily awakened with verbal command. A&Ox4. VSS, BP hypotensive, doctor aware. IV CDI, fluids infusing. Denies pain and discomfort. Patient states that she feels better. No further needs expressed from the patient. Call light within reach
--- NOTE | 2020-09-08 11:58 | NUR ---
prayed with patient. Patient was wanting to rest.
--- NOTE | 2020-09-08 12:28 | NUR ---
SW met with patient to conduct intake evaluation. Patient lives at home in [place] with William (P# [phone]). Patient's DPOA is William. Patient states paperwork is in a lock box, but that she will have William bring paperwork to the hospital. Patient's PCP is Dr. Greene, and she uses [facility] for pharmacy needs. Patient denies needing assistance with ADLs and use no DME. Patient denies needing assistance affording medications. Patient plans to discharge home with providing transporation. Patient is concerned about who will care for their 9 yr old son at discharge so that William can transport her home. Please check in with patient when discharging to offer transportation assistance if needed. SW will continue to follow.
--- NOTE | 2020-09-08 17:31 | NUR ---
Patient slept most of the shift and then towards the end of shift had complaints of pain in head and neck and elevated temperature. Patient reported increased pain in neck with movement and started crying. Temperature decreasing with tylenol and motrin. LYNSEY Dickens notified and aware. Patient assisted to the bathroom d/t being dizzy when standing. A&Ox3. VSS. IV CDI, fluids infusing. Call light within reach
--- NOTE | 2020-09-08 19:40 | NUR ---
Patient assessed at this time. Alert and oriented x 4, and able to make needs known. Denies having pain and discomfort at this time. Peripheral IV to left AC. Site without redness, warmth, swelling, and pain. Denies having SOB and dyspnea. LS CTA. Respirations even and unlabored. HRR. Capillary refill less than 3 seconds. Non-tenting skin turgor. BSAx4. Abdomen soft and non-tender. No edema. Bandaid to LP site to back CDI. Patient afebrile at this time. Voices no questions, needs, or concerns. Resting in bed with call light within reach.
[2020-09-09 03:50] VITALS: BP 116/73; PULSE 66; TEMP 98.3
--- NOTE | 2020-09-09 05:44 | NUR ---
Patient received PRN APAP once, and PRN Ultram once this shift. Resting in bed with eyes closed at this time. Continues on IV fluids and antibiotics per orders. Voices no questions, needs, or concerns. Has been afebrile this shift. Call light is within reach.
[2020-09-09 07:34] LABS: BASO % 0.5 % (0.0-2.0); EOS # 0.2 (0.0-0.7); EOS % 3.9 % (0-4.0); GRAN # 3.7 (1.4-6.5); GRAN % 64.9 % (42.2-75.2); LYMPH # 1.2 (1.2-3.4); LYMPH % 21.7 % (20.0-51.0); MEAN CELL VOLUME 81 fl (80.0-100.0); MEAN CORPUSCULAR HGB CONC 33 g/dl (33.0-37.0); MEAN PLATELET VOLUME 9.5 fl (7.4-10.4); MONO # 0.5 (0.1-0.6); MONO % 8.5 % (1.7-9.3); PLATELET COUNT 227 K/mm3 (130-400); RED BLOOD COUNT 3.29 M/mm3 (4.10-5.30); REDCELL DISTRIBUTION WIDTH-CV 14.9 % (11.5-14.5)
[2020-09-09 07:43] LABS: CALCIUM 7.9 mg/dL (8.4-10.2); CREATININE, serum 0.43 (0.52-1.25); POTASSIUM 3.5 mmol/L (3.4-5.0)
[2020-09-09 07:49] LABS: HEMATOCRIT 26.7 % (37.0-47.0); HEMOGLOBIN 8.7 g/dl (12.5-16.0); MEAN CORPUSCULAR HEMOGLOBIN 26 pg (27.0-31.0)
[2020-09-09 08:00] VITALS: BP 122/83; PULSE 76; TEMP 97.8
[2020-09-09 12:22] VITALS: BP 103/62; PULSE 85; TEMP 98.2
--- NOTE | 2020-09-09 13:50 | NUR ---
Pt was sleeping upon start of shift. Administered PO meds and Ibuprofen for headache patient rated 8/10. Upon assessment pt was stating she was still in pain. Adminstered fentanyl and began running Vancomycin. Pt's IV began to infiltrate. Stopped Vancomycin and changed IV sites from left to right forearm. Applied a cold compress to the left forearm to relieve swelling and pain. Pt is resting in room with spouse.
--- NOTE | 2020-09-09 14:31 | NUR ---
Agree with student nurses assessment. Patient has had complaint of a headache. Pain medication given when requested. IV site infiltrated and student nurse started a new IV site. Patient has been resting intermittently. Call light within reach.
--- NOTE | 2020-09-09 14:52 | NUR ---
WU care supervised by this instructor, agree with documentation.
[2020-09-09 16:00] VITALS: BP 122/72; PULSE 75; TEMP 98
--- NOTE | 2020-09-09 17:15 | NUR ---
Patient had complaints of a headache throughout the shift. Slept intermittently, but easily awakened. A&Ox4. VSS. IV CDI, fluids infusing. No fever or reported neck pain. Call light within reach
[2020-09-09 19:32] VITALS: BP 131/84; PULSE 74; TEMP 98.4
[2020-09-09 23:51] VITALS: BP 134/80; PULSE 71; TEMP 97.7
[2020-09-10 04:01] VITALS: BP 130/78; PULSE 75; TEMP 98
--- NOTE | 2020-09-10 05:07 | NUR ---
PATIENT HAD RESTFUL NIGHT; HEADACHE WAS WELL CONTROLLED WITH PAIN REMAINING UNDER 5/10. PATIENT WAS ABLE TO FUNCTION WITH ATTENTIONS TO TV AND PHONE WITHOUT PROBLEM. PATIENT REMAINED AFEBRILE THIS SHIFT.
--- NOTE | 2020-09-10 06:00 | NUR ---
PATIENT HAD C/O PAIN WITH PUSH OF 2GM ROCEPHIN WITH 1900 DOSE ON 09/09 - 699 DOSE PLACED ON PUMP TO RUN CONCURRENTLY WITH IVF - INFUSION SLOWED TO 120ML/HR FOR 10 MINUTE INFUSION. PATIENT TOLERATED THIS WELL - N/C OF PAIN OR BURNING DURING INFUSION.
--- NOTE | 2020-09-10 07:58 | NUR ---
Report received from CORNELIO Álvarez. pT in bed resting with eyes closed, will continue to monitor.
--- NOTE | 2020-09-10 07:59 | NUR ---
Assessment charted. Pt c/o headache at 11/08, PRN ibuprofen provided. Pt resting with lights off, denies other needs. does not want to eat breakfast at this time but will try in an hour after ibuprofen kicks in. Will continue to monitor.
[2020-09-10 10:09] VITALS: BP 119/76; PULSE 68; TEMP 99.1
[2020-09-10 10:15] VITALS: BP 119/76; PULSE 68; TEMP 99.1
--- NOTE | 2020-09-10 11:00 | NUR ---
The patient's PA notified MARGARET that she is going to need 14 days of IV Acyclovir. The patient is to have a PICC placed today and tentatively d/c tomorrow. MARGARET met with the patient and her to address this and discuss outpatient IV antibiotics in the home or at a hospital. The patient states that she had home IV antibiotics in the past with a home health agency. She would like do the IV antibiotics at home use the same infusion company and home health agency she had in the past. Per the patient's past discharge notes, the patient used [facility] and [facility] for the antibiotics. MARGARET informed the patient and she confirms she would like to use the same places. MARGARET contacted and faxed a referral to Nalini at [facility]. Awaiting screen. MARGARET contacted and faxed the patient's information, with the med recommendation to [facility].
--- NOTE | 2020-09-10 11:28 | NUR ---
Nalini, at [facility], reports that they are able to accept the patient for services.
--- NOTE | 2020-09-10 12:50 | NUR ---
First visit from the assistant quality manager. No needs right now.
[2020-09-10 13:45] LABS: HSV 2 DNA PCR QUAL Not Detected (())
[2020-09-10] MEDS ORDERED: ZOVIRAX INJ V1000 MG IV (14:27)
--- NOTE | 2020-09-10 14:29 | NUR ---
Patient was resting upon arrival to shift. Patient began to complain of headache, rating 6/10. Patient refused breakfast due to pain. Pt given ibuprofen, tylenol, fentanyl, and tramadol. Patient arose from a nap and stated she was not in any pain. Shortly after, she ate some lunch before going to her procedure.
--- NOTE | 2020-09-10 14:49 | NUR ---
This instructor supervised care provided by LISETTE between [id number], agree with documentation.
[2020-09-10 15:52] VITALS: BP 111/71; PULSE 69; TEMP 98
--- NOTE | 2020-09-10 16:26 | NUR ---
Jenni, at [facility], reports that they are normally out of network with , but will need to check the patient's benefits to make sure. She states that if they are in network, the soonest they would be able to deliver the med to the patient is on Thursday. MARGARET contacted [facility] at [place] to inquire if they are in network with . [facility] reports that they are in network with . MARGARET contacted and faxed the IV antibiotic order to [facility]. Awaiting approval.
--- NOTE | 2020-09-10 18:37 | NUR ---
Pt resting in bed, states she feels much better since arriving back from blood patch this afternoon, ordering food, sitting up in bed and talking on phone. Denies needs, will give bedside shift report to nightshift naga who will resume care.
--- NOTE | 2020-09-10 19:41 | NUR ---
Awake, alert, oriented x 3, sitting up in bed, states "i feel much better", updated on plan of care, PICC line placement tomorrow, denies pain.
[2020-09-10 20:58] VITALS: BP 134/84; PULSE 71; TEMP 99.8
[2020-09-11 01:09] VITALS: BP 113/62; PULSE 82; TEMP 99.9
[2020-09-11 04:00] VITALS: BP 110/71; PULSE 78; TEMP 98.6
--- NOTE | 2020-09-11 06:35 | NUR ---
awake resting in bed, bedside shift report received from CORNELIO Hightower
[2020-09-11 07:04] LABS: MEAN CELL VOLUME 82 fl (80.0-100.0); MEAN CORPUSCULAR HGB CONC 32 g/dl (33.0-37.0); MEAN PLATELET VOLUME 10.3 fl (7.4-10.4); PLATELET COUNT 310 K/mm3 (130-400); RED BLOOD COUNT 3.49 M/mm3 (4.10-5.30)
[2020-09-11 07:08] LABS: HEMOGLOBIN 9.2 g/dl (12.5-16.0); MEAN CORPUSCULAR HEMOGLOBIN 26 pg (27.0-31.0)
[2020-09-11 07:09] LABS: HEMATOCRIT 28.7 % (37.0-47.0)
[2020-09-11 07:21] LABS: CALCIUM 8.2 mg/dL (8.4-10.2); CREATININE, serum 0.48 (0.52-1.25); POTASSIUM 3.3 mmol/L (3.4-5.0)
[2020-09-11 07:45] VITALS: BP 122/69; PULSE 90; TEMP 99.3
--- NOTE | 2020-09-11 08:15 | NUR ---
resting in bed with lights off, states headache is better at 4/10, c/o nausea and medicated with zofran 4mg slow IV, full assessment completed, see interventions for further info, assisted up to bathroom and voided qs and then back to bed
--- NOTE | 2020-09-11 08:45 | NUR ---
states nausea is better after having zofran and is sitting up and ready to have breakfast, at bedside
[2020-09-11] MEDS ORDERED: ULTRAM 50MG TAB50 MG PO (08:58)
[2020-09-11] MEDS ORDERED: ATIVAN 1MG T1 MG/TAB PO (09:09)
--- NOTE | 2020-09-11 09:10 | NUR ---
Dr Valdez and care team in to see maggie
--- NOTE | 2020-09-11 09:37 | NUR ---
Shannon, at [facility], reports that she checked the patient's benefits and they are able to service the patient. She reports that she will be up to the hospital this afternoon to provide education to the patient. She requests that the patient have her morning and afternoon dose here at the hospital. They will deliver the IV antibiotics to the patient's home tonight, for the patient to be able to receive her evening dose at home. MARGARET updated the clinical team, the patient and her , and Nalini at [facility]. They were all agreeable to the plan. The patient is to discharge back home with her family today, 09/11, with home health services for prison from [facility] and IV Acyclovir from [facility]. MARGARET faxed d/c orders to [facility]. No additional needs at this time.
--- NOTE | 2020-09-11 10:50 | NUR ---
INT discontinued, will get up to shower with at bedside to assist
--- NOTE | 2020-09-11 11:25 | NUR ---
to express unit per WC for PICC placement
--- NOTE | 2020-09-11 12:52 | NUR ---
returned fro [facility] after having PICC placed
[2020-09-11 12:57] VITALS: BP 136/85; PULSE 64; TEMP 98.2
--- NOTE | 2020-09-11 14:15 | NUR ---
resting in bed, denies needs
--- NOTE | 2020-09-11 16:00 | NUR ---
c/o head and neck pain and medicated with tylenol 650mg po, will plan discharge when acyclovir is infused, reviewed with how to aspiriate and flush PICC, verbalizes and performs return demonstration
[2020-09-11 16:19] VITALS: BP 129/83; PULSE 70; TEMP 98.6
--- NOTE | 2020-09-11 17:20 | NUR ---
discharge instructions given to patient, verbalizes understanding,
--- NOTE | 2020-09-11 17:35 | NUR ---
discharged per WC
== END 2020-09-11 17:35 | disposition home health service (06) | DRG 76 ==
LOC: COL.ER 12:38 → MEDICAL 16:43
PROVIDERS: Emergency Medicine; Physician Assistant; ADMIT Internal Medicine
PROC: 02HV33Z Insertion of Infusion Device into Superior Vena Cava, Percutaneous Approach (ICD-10-PCS; principal; 2020-09-11)
PROC: 009U3ZX Drainage of Spinal Canal, Percutaneous Approach, Diagnostic (ICD-10-PCS; 2020-09-11)
DX: G03.2 Benign recurrent meningitis [Mollaret] (principal); F32.9 Major depressive disorder, single episode, unspecified; F41.9 Anxiety disorder, unspecified; I95.9 Hypotension, unspecified; D64.9 Anemia, unspecified; Z87.891 Personal history of nicotine dependence; Z88.6 Allergy status to analgesic agent
CPT/HCPCS: 99223-AI; 99232-AI; 99233-AI; 99239; C1751; G0378; J0133; J0696; J1650; J1885; J2405; J3010; J3370; J7030; J7040; J7050; J7120

== ENCOUNTER 2020-09-21 12:56 | Outpatient (CLI) | payer OTHER ==
[~2020-09-21] VITALS: Ht 172.7 cm; Wt 61.6 kg
[~2020-09-21 12:56] MED LIST changes: +ATIVAN 1MG T1 MG/TAB PO; +LEXAPRO 5MG5 MG PO; +ULTRAM 50MG TAB50 MG PO; +VALTREX 50500 MG/TAB PO
[2020-09-21 13:58] VITALS: BP 117/76; PULSE 63; TEMP 98
--- NOTE | 2020-09-21 14:43 | NUR ---
DC instructions/ post PICC removal instructions reviewed with pt, she expresses understanding. Dressing to rt upper arm remains clean, dry and intact. She ambulates from dept with steady gait.
[2020-09-24 13:32] LABS: HERPES SIMPLEX 2 VIRUS IGM IFA <1:10 (<1:10)
[2020-09-25 06:17] LABS: CYTOMEGALOVIRUS AB IGM INT Negative (Negative); CYTOMEGALOVIRUS IGG INTERP Negative (Negative)
[2020-09-26 19:17] LABS: EBV NUCLEAR ANTIGEN IGG Positive (())
[2020-09-26 19:37] LABS: EBV EARLY ANTIGEN IGG Positive (()); EBV IGM AB Negative (())
[2020-09-27 16:27] LABS: HERPES SIMPLEX TYPE 1 IGG INT SEE PCI FOR RESULTS; HERPES SIMPLEX TYPE 2 IGG INT SEE PCI FOR RESULTS
[2020-09-27 16:28] LABS: EBV NUCLEAR ANTIGEN (EBNA)-IgG XXX; HERPES SIMPLEX VIRUS 1 IGG XXX; HERPES SIMPLEX VIRUS 2 IGG XXX
== END 2020-09-21 14:44 | disposition home or self-care (01) ==
LOC: EUO 12:56
PROVIDERS: Internal Medicine Infectious Disease
DX: A87.9 Viral meningitis, unspecified (principal)

== ENCOUNTER → 2020-10-01 | Outpatient (CLI) | payer OTHER ==
[~2020-10-01] MED LIST changes: +VALTREX1 GM PO
[2020-10-01 17:08] LABS: BASO % 0.5 % (0.0-2.0); EOS # 0.2 (0.0-0.7); EOS % 2.3 % (0-4.0); GRAN # 4.4 (1.4-6.5); HEMOGLOBIN 11.6 g/dl (12.5-16.0); LYMPH # 2.2 (1.2-3.4); LYMPH % 29.4 % (20.0-51.0); MEAN CELL VOLUME 82 fl (80.0-100.0); MEAN CORPUSCULAR HEMOGLOBIN 27 pg (27.0-31.0); MEAN CORPUSCULAR HGB CONC 33 g/dl (33.0-37.0); MEAN PLATELET VOLUME 9.6 fl (7.4-10.4); MONO # 0.6 (0.1-0.6); MONO % 8.5 % (1.7-9.3); PLATELET COUNT 301 K/mm3 (130-400); RED BLOOD COUNT 4.27 M/mm3 (4.10-5.30); REDCELL DISTRIBUTION WIDTH-CV 17.7 % (11.5-14.5)
[2020-10-01 17:11] LABS: HEMATOCRIT 34.9 % (37.0-47.0)
[2020-10-01 17:33] LABS: ALANINE AMINOTRANSFERASE 13 U/L (4-34); ALBUMIN 4.4 gm/dL (3.5-5.0); ALKALINE PHOSPHATASE 71 U/L (50-136); ANION GAP 11 mmol/L (7-16); AST,SGOT 34 U/L (15-37); BILIRUBIN,TOTAL 0.8 mg/dL (0.0-1.0); BLOOD UREA NITROGEN 14 mg/dL (7-17); CALCIUM 9.1 mg/dL (8.4-10.2); CARBON DIOXIDE 24 mmol/L (22-30); CHLORIDE 102 mmol/L (98-107); CREATININE, serum 0.77 (0.52-1.25); GLUCOSE 102 mg/dL (74-106); SODIUM 137 mmol/L (137-145); TOTAL PROTEIN 8.3 gm/dL (6.4-8.2)
[2020-10-01 17:40] LABS: C-REACTIVE PROTEIN < 0.5 mg/dL (0.0-0.9)
[2020-10-02 22:48] LABS: IMMUNOGLOBULIN A 353 mg/dL (65-421); IMMUNOGLOBULIN G 1435 mg/dL (552-1631)
[2020-10-02 22:49] LABS: IMMUNOGLOBULIN M, QUANTITATIVE 41 mg/dL (33-293)
[2020-10-05 10:04] LABS: IMMUNO G SUBCLASS 2 549.3 mg/dL (()); IMMUNO G SUBCLASS 3 111.4 mg/dL (()); IMMUNO G SUBCLASS 4 21.5 mg/dL (3.9-86.4)
== END ==
LOC: COL.LAB 15:44
DX: B99.9 Unspecified infectious disease (principal); Z86.61 Personal history of infections of the central nervous system

== ENCOUNTER → 2020-10-01 | Outpatient (CLI) | payer OTHER | LOC: ZCOL.LAB 14:11 | DX: Z09 Encounter for follow-up examination after completed treatment for conditions other than malignant neoplasm (principal); B99.9 Unspecified infectious disease; Z86.61 Personal history of infections of the central nervous system ==

== ENCOUNTER → 2020-10-02 | Outpatient (CLI) | payer OTHER | LOC: COL.LAB 18:13 | DX: B99.9 Unspecified infectious disease (principal); Z86.61 Personal history of infections of the central nervous system ==

== ENCOUNTER → 2020-10-19 | Outpatient (CLI) | payer OTHER | LOC: ZCOL.LAB 13:47 | DX: B99.9 Unspecified infectious disease (principal) ==

== ENCOUNTER → 2020-10-21 | Outpatient (CLI) | payer OTHER ==
[2020-10-21 15:50] LABS: BASO # 0.1 (0.0-0.2); BASO % 0.7 % (0.0-2.0); EOS # 0.2 (0.0-0.7); EOS % 2.8 % (0-4.0); GRAN # 4.1 (1.4-6.5); GRAN % 58.2 % (42.2-75.2); LYMPH # 2.1 (1.2-3.4); LYMPH % 29.5 % (20.0-51.0); MEAN CELL VOLUME 85 fl (80.0-100.0); MEAN CORPUSCULAR HEMOGLOBIN 28 pg (27.0-31.0); MEAN CORPUSCULAR HGB CONC 33 g/dl (33.0-37.0); MONO # 0.6 (0.1-0.6); MONO % 8.5 % (1.7-9.3); PLATELET COUNT 302 K/mm3 (130-400); RED BLOOD COUNT 4.24 M/mm3 (4.10-5.30); REDCELL DISTRIBUTION WIDTH-CV 17.3 % (11.5-14.5)
[2020-10-21 15:51] LABS: HEMATOCRIT 35.9 % (37.0-47.0)
[2020-10-21 15:59] LABS: ALANINE AMINOTRANSFERASE 10 U/L (4-34); ALBUMIN 4.3 gm/dL (3.5-5.0); ALKALINE PHOSPHATASE 67 U/L (50-136); ANION GAP 7 mmol/L (7-16); AST,SGOT 21 U/L (15-37); BLOOD UREA NITROGEN 15 mg/dL (7-17); CALCIUM 8.9 mg/dL (8.4-10.2); CARBON DIOXIDE 26 mmol/L (22-30); CHLORIDE 104 mmol/L (98-107); CREATININE, serum 0.58 (0.52-1.25); GLUCOSE 92 mg/dL (74-106); POTASSIUM 4.1 mmol/L (3.4-5.0); SODIUM 137 mmol/L (137-145)
[2020-10-21 16:04] LABS: C-REACTIVE PROTEIN < 0.5 mg/dL (0.0-0.9)
[2020-10-21 16:18] LABS: ERYTHROCYTE SEDIMENTATION RATE 11 mm/hr (0-20)
== END ==
LOC: COL.LAB 15:27
PROVIDERS: Nurse Practitioner
DX: B99.9 Unspecified infectious disease (principal)

== ENCOUNTER 2021-01-11 08:41 | Day surgery (SDC) | payer OTHER ==
[~2021-01-11] VITALS: Ht 172.7 cm; Wt 60.8 kg
[~2021-01-11 08:41] MED LIST changes: -VALTREX1 GM PO
[2021-01-11] MEDS ORDERED: VALTREX1 GM PO (09:13)
[2021-01-11 09:43] VITALS: BP 124/93; PULSE 84; TEMP 98.7
--- NOTE | 2021-01-11 10:32 | NUR ---
Initial visit; Patient requested prayer. Protective Services Officer offered prayer prior to patient's procedure.
[2021-01-11 12:30] VITALS: BP 127/93; PULSE 72; TEMP 97.9
[2021-01-11 12:45] VITALS: BP 104/69; PULSE 66
[2021-01-11 13:00] VITALS: BP 108/77; PULSE 67
[2021-01-11 13:15] VITALS: BP 95/73; PULSE 68
[2021-01-11 13:30] VITALS: BP 108/74; PULSE 74
--- NOTE | 2021-01-11 13:50 | NUR ---
1230 Pt returns from endo procedure via cart. Pt ambulates from cart to recliner with RN assist. Pt somewhat drowsy but answers all questions appropriately. present in room. Pt requests muffin and coffee. Pt denies pain and nausea. Monitors on and alarms set. Call light within reach. Report received from Nohemi. 1250 Pt taking food and drink well. Pt now alert. 1345 Discharge instructions given to pt and . All questions answered to their satisfaction. Handed to them are a thank you card and discharge information. 1350 Pt transferred out of hospital via wheelchair and Jagjit RN assist, to private vehicle driven by .
== END 2021-01-11 13:50 | disposition home or self-care (01) ==
LOC: SDCO 08:41
DX: D12.5 Benign neoplasm of sigmoid colon (principal); R19.4 Change in bowel habit; R19.7 Diarrhea, unspecified; R10.32 Left lower quadrant pain; R10.31 Right lower quadrant pain; R14.0 Abdominal distension (gaseous); K57.30 Diverticulosis of large intestine without perforation or abscess without bleeding; K64.0 First degree hemorrhoids; F32.9 Major depressive disorder, single episode, unspecified; F17.210 Nicotine dependence, cigarettes, uncomplicated; Z20.822 Contact with and (suspected) exposure to COVID-19; Z79.899 Other long term (current) drug therapy
CPT/HCPCS: J2704; J7120